=== PATIENT | male | born 1960 | race Caucasian/White ===

== ENCOUNTER 2023-10-23 07:47 | Outpatient (CLI) | payer OTHER, SELFPAY ==
--- NOTE | ~2023-10-23 | US_ITS ---
Procedure: Duplex Doppler examination of the bilateral carotids. Indication: Carotid bruit Technique: Real time, color-flow and pulse wave Doppler examination of the bilateral carotids was performed. Findings: Adams scale ultrasonography of the right neck demonstrated no significant plaque. There was demonstrat ion of normal color-flow and Doppler waveforms within the right common, internal and external carotid arteries. The peak systolic velocities in the right common, internal and external carotid arteries w ere demonstrated to be 89 cm/sec, 77 cm/sec and 132 cm/sec respectively. The right ICA/CCA ratio was 0.9.The proximal right internal carotid artery demonstrates 0% stenosis relative to the normal distal artery lumen diameter. Adams scale sonography of the left neck demonstrated no significant plaque. There was demonstration of normal color-flow and wave forms within the left common, internal and external carotid arteries. The peak systolic velocities in the left common, internal and external carotid arteries were demonstrate d to be 95cm/sec, 79 cm/sec and 126 cm/sec respectively. The left ICA/CCA ratio was 0.8. The proximal left internal carotid artery demonstrates 0% stenosis relative to the normal distal artery lumen kavin meter. There was antegrade flow demonstrated in the bilateral vertebral arteries. Impression: No hemodynamically significant stenosis of the bilateral internal carotid arteries. Antegrade flow in the bilateral vertebral arteries. Note: The methodology used is an indirect measurement validated against a direct method (such as the NASCET criteria) that compares diameters at the stenosis to the distal ICA. Reviewed, dictated and finalized at [facility]. REMENT ASSISTANT Impression: No hemodynamically significant stenosis of the bilateral internal carotid arter ies. Antegrade flow in the bilateral vertebral arteries. Note: The methodology used is an indirect measurement validated against a direct meth od (such as the NASCET criteria) that compares diameters at the stenosis to the distal ICA.
--- NOTE | ~2023-10-23 | CT_ITS ---
CT Scan of the Chest without Contrast: Clinical Indication: Lung cancer screening, personal history of nicotine dependence Technique: Contiguous sections were acquired throughout the chest without intravenous contrast. Dose reduction technique was used on this scan by utilizing automated exposure control and iterative recon struction technique. The dose-length product (DLP) was 169.14 mGy-cm. Findings: There is no evidence of any significant mediastinal, hilar or axillary lymphadenopathy. Calcified med iastinal and right hilar lymph nodes are present. There is no evidence of pleural or pericardial effusion. Calcified right lower lobe granuloma noted. No other pulmonary nodule seen. Images through the upper abdomen reveal no abnormalities. Impression: Lung RADS 2: Benign appearance. 12 month follow-up screening CT advised. Reviewed, dictated and finalized at [facility]. AL HEALTH AIDE Impression: Lung RADS 2: Benign appearance. 12 month follow-up screening CT advised.
--- NOTE | ~2023-10-23 | US_ITS ---
EXAMINATION: US aorta DATE: 10/23/2023 08:29 INDICATION: Abdominal aortic aneurysm screening, current smoker TECHNIQUE: Grayscale, color Doppler, and pulsed Doppler images of the aorta and common iliac arteries were obtained. COMPARISON: None. FINDINGS: Maximum vascular dimensions are as follows: Proximal aorta: 2.7 cm Mid aorta: 1.9 cm Distal aorta: 1.7 cm Right common iliac artery: 1.0 cm Left common iliac artery: 1.1 cm There is no evidence of abdominal aortic aneurysm. IMPRESSION: 1. No sonographic evidence of abdominal aortic aneurysm. Reviewed, dictated and finalized at location L. MATIC STEEL TIE ADJUSTER
== END 2023-10-23 07:48 | disposition home or self-care (01) ==
LOC: CHSIMG 07:52
PROVIDERS: PCP Internal Medicine; Visit Provider Internal Medicine
DX: Z12.2 Encounter for screening for malignant neoplasm of respiratory organs (principal); R09.89 Other specified symptoms and signs involving the circulatory and respiratory systems; Z87.891 Personal history of nicotine dependence
CPT/HCPCS: 71271; 76775; 93880

== ENCOUNTER 2023-12-12 08:34 | Outpatient (CLI) | payer OTHER, SELFPAY ==
[2023-12-16 11:49] LABS: Testosterone Free 78.5 pg/mL (35.0-155.0); Testosterone Total 497 ng/dL (250-1100)
== END 2023-12-12 08:35 | disposition home or self-care (01) ==
LOC: CHSLAB 08:36
PROVIDERS: PCP Internal Medicine; Visit Provider Internal Medicine
DX: N52.9 Male erectile dysfunction, unspecified (principal)
CPT/HCPCS: 36415; 84402; 84403

== ENCOUNTER 2024-10-27 11:57 | Outpatient (CLI) | payer OTHER, SELFPAY ==
[2024-10-27 12:12] LABS: Basophils Absolute Auto 0.07 K/mm3 (0.00-0.10); Basophils Percent Auto 1.1 % (0.0-1.0); Eosinophils Percent Auto 1.6 % (1.0-6.0); Hematocrit 40.7 % (40.0-54.0); Hemoglobin 14.2 g/dL (14.0-18.0); Immature Granulocyte Absolute 0.03 K/mm3 (0.00-0.00); Immature Granulocyte Percent A 0.5 % (0.0-0.0); Lymphocytes Absolute Auto 1.83 K/mm3 (1.10-4.50); Lymphocytes Percent Auto 29.8 % (18.0-42.0); Mean Corpuscular HGB Conc 34.9 g/dL (32-36); Mean Corpuscular Hemoglobin 30.8 pg (27.0-31.0); Mean Corpuscular Volume 88.3 fL (78.0-102.0); Mean Platelet Volume 8.9 fl (8.7-11.0); Monocytes Absolute Auto 0.53 K/mm3 (0.10-0.90); Monocytes Percent Auto 8.6 % (2.0-11.0); Neutrophils Absolute Auto 3.59 K/mm3 (1.70-7.20); Neutrophils Percent Auto 58.4 % (50.0-70.0); Platelet Count Result 228 K/mm3 (150-420); Red Blood Count 4.61 M/mm3 (4.70-6.10); Red Cell Distribution Width 12.4 % (11.6-14.4); White Blood Count 6.2 K/mm3 (4.8-10.8)
[2024-10-27 12:13] LABS: Add Urine Microscopic? NO; Appearance Urine Clear (Clear); Bilirubin Urine Negative (Negative); Blood Urine Negative (Negative); Color Urine Light Yellow (Yellow); Glucose Urine UA Negative (Negative); Ketones Urine Negative (Negative); Leukocyte Esterase Ur Negative LEU/UL (Negative); Nitrate Urine Negative (Negative); Protein Urine Negative (Negative); Specific Grav Ur >= 1.030 (1.010-1.020); Urobilinogen Urine 0.2 mg/dL (0.2-1.0)
[2024-10-27 16:45] LABS: Alanine Aminotransferase 37 U/L (16-63); Albumin Level 3.7 g/dL (3.4-5.0); Alkaline Phosphatase 80 U/L (46-116); Anion Gap 12 mmol/L (4-12); Aspartate Amino Transferase 24 U/L (15-37); Bilirubin,Total 0.7 mg/dL (0.00-1.00); Blood Urea Nitrogen 20 mg/dL (7-18); Carbon Dioxide 25 mmol/L (21-32); Chloride 105 mmol/L (98-108); Cholesterol 236 mg/dL (0-200); Estimated Glomerular Filt Rate > 60; Glucose 92 mg/dL (70-99); HDL Direct 64 mg/dL (40-60); LDL Cholesterol Calculated 155 mg/dL (<130); Osmolality Calculated 296 mOsm/kg (285-295); Potassium 4.1 mmol/L (3.5-5.1); Sodium 142 mmol/L (136-145); Total Protein 6.6 g/dL (6.4-8.2); Triglycerides 85 mg/dL (0-150)
[2024-10-27 17:11] LABS: Hemoglobin A1C 5.4 % (<5.7)
== END 2024-10-27 11:58 | disposition home or self-care (01) ==
LOC: CHSLAB 11:58
PROVIDERS: PCP Internal Medicine; Visit Provider Internal Medicine
DX: N39.0 Urinary tract infection, site not specified (principal); R73.01 Impaired fasting glucose; E78.00 Pure hypercholesterolemia, unspecified
CPT/HCPCS: 36415; 80053; 80061; 81003; 83036; 85025

== ENCOUNTER 2024-12-03 13:11 | Outpatient (CLI) | payer OTHER, SELFPAY ==
--- NOTE | ~2024-12-03 | CT_ITS ---
EXAMINATION:CT lung screening DATE: 12/03/2024 13:41 INDICATION: Personal history of nicotine dependence. Smoker who quit 1 year ago with 45 pack year his tory. TECHNIQUE: Computed tomography (CT) of the chest was performed without intravenous contrast. Automate d exposure control and iterative reconstruction technique were employed. The dose-length product (DLP ) was 272.80 mGy-cm. COMPARISON: Chest CT 10/23/2023 FINDINGS: A calcified right lung nodule and calcified right hilar lymph nodes are consistent with old granulomatous disease. There is a 2 mm nodule in right upper lobe. No pleural effusion. The heart si ze is normal. No pericardial effusion. There are coronary artery calcifications. No pericardial effus ion. Calcifications in the spleen are consistent with old granulomatous disease. There is mild thorac ic spondylosis. IMPRESSION: 1. Lung-RADS category 2: Benign appearance or behavior. Continue annual screening with noncontrast lo w-dose chest CT in 12 months. Reviewed, dictated and finalized at location B. BRIEFER IMPRESSION: 1. Lung-RADS category 2: Benign appearance or behavior. Continue annual screeni ng with noncontrast low-dose chest CT in 12 months.
--- OUTSIDE RECORDS SUMMARY | 2024-12-03 13:19 | XMS_ITS | Clinical Summary ---
Author Organization [facility] Address [address] [place] [id number] Care Team Providers Care Studio Sales Associate Name Role Phone Michele Lewis MD Primary Care Provider [phone] Allergies No known active allergies Medications buPROPion SR (ZYBAN) 150 mg 12 hr tabletIndication s:Smoker Take 1 tablet (150 mg total) by mouth 2 (two) times a day 60 tablet 1 05/23/2020 Active sertraline (ZOLOFT) 50 mg tabletIndication s:Anxiety Take 1 tablet (50 mg total) by mouth daily 90 tablet 4 03/22/2022 Active Active Problems Problem Noted Date Diagnosed Date Paresthesias 06/03/2018 Anxiety disorder 09/12/2014 Hyperglycemia 09/03/2012 Hyperlipidemia 09/03/2012 Benign colonic polyp 08/18/2012 Immunizations Name Administration Dates Next Due Influenza, Quadrivalent, Spl it, Preservative Free, Intramuscular 09/12/2015 Influenza, Trivalent, Preservative Free, Intramu scular 09/12/2014,09/10/2013 Pneumococcal Polysaccharide PPV23 12/26/2017 Tdap 09/12/2014 Medical History Medical History Date Comments Cervicalgia Neck pain - (Add ed by TW Conv) Full incontinence of feces Bowel incontinence - (Added by TW Conv) Encounter for antibody respo nse examination Immunity status testing - (A dded by TW Conv) Family History Medical History Relation Name Comments Hyperlipidemia Father Family histor y of hyperlipidemia - (Added by TW Conv) Peripheral vascular disease Sister Family history of peripheral vascular disease - (Added by TW Conv) Rectal cancer Sister Rectal Cancer - (Added by TW Conv) Relation Name Status Comments Father Sister Social History Tobacco Use Types Packs/Day Years Used Date Smoking Tobacco: Former Sex and Gender Information Value Date Recorded Sex Assigned at Not on file Legal 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 Gender Identity Not on file Sexual Orientation Not on file Obstetrics History Last Filed Vital Signs Vital Sign Reading Time Taken Comments Blood Pressure 116/60 03/22/2022 9:19 AM CDT Pulse 82 03/22/2022 9:19 AM CDT Temperature 36.6 ??C (97.9 ??F) 03/22/2022 9:19 AM C DT Respiratory Rate - - Oxygen Saturation 95% 03/22/2022 9:19 AM CDT Inhaled Oxygen Concentration - - Weight 93 kg (205 lb) 03/22/2022 9:19 AM CDT Height 184.2 cm (6' 0.5 ) 05/23/2020 10:34 AM CD T Body Mass Index 27.42 05/23/2020 10:34 AM CDT Plan of Treatment Health Maintenance Due Date Last Done Comments Colon Cancer Screening-Colonoscopy 1960 Depression Screening 1960 Hepatitis C Screening 1960 Hepatitis B Screening 1978 Zoster Vaccine (1 of 2) 2010 Prostate Cancer Screening-PSA 05/26/2022 05/26/2020 Regular Well Visit/Exam 18-64 03/22/2023, 05/23/2020 Influenza Vaccine (#1) 2024 5, 09/12/2014, 09/10/2013 DTaP/Tdap/Td Vaccine (2 - Td or Tdap) 09/12/2024 09/12/2014 Pneumococcal vaccine <65 Aged Out 12/26/2017 No longer eligible based on patient's age to complete this topic Procedures Procedure Name Priority Date/Time Associated Diagnosis Comments PSA SCREEN Routine 05/26/2020 7:58 AM CDT Prostate cancer screening from Last 3 Months or Most Recently Relevant to Health Maintenance Results * PSA screen (05/26/2020 7:58 AM CDT) PSA 1.5 < OR = 4.0 ng/mL [employer] Comment: The total PSA value from this assay system is standardized against the WHO standard. The test result will be approximately 20% lower when compared to the equimolar-standardized total PSA ([place]ik [place]). Comparison of serial PSA results should be interpreted with this fact in mind. This test was performed using the Siemens chemiluminescent method. Values obtained from different assay methods cannot be used interchangeably. PSA levels, regardless of value, should not be interpreted as absolute evidence of the presence or absence of disease. Blood specimen (specimen) 05/26/2020 7:58 AM CDT 05/26/2020 7:59 AM CDT Narrative [facility] - 05/27/2020 7:52 AM CDT FASTING:YES FASTING: YES Michele Lewis MD LAB BLOOD ORDERABLES Final R esult [employer] [address] [place] [address] from Last 3 Months or Most Recently Relevant to Health Maintenance Insurance [facility] Care Teams Studio Sales Associate Relationship Specialty Start Date End Date Michele Lewis MD [address] [place] [address] [place] [address] PCP - General Cardiovascular Disease 08/31/20
--- OUTSIDE RECORDS SUMMARY | 2024-12-03 13:19 | XMS_ITS | Referral Summary ---
Author Organization 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 Gender Identity Not on file Sexual Orientation Not on file Last Filed Vital Signs Vital Sign Reading Time Taken Comments Blood Pressure 116/60 03/22/2022 9:19 AM CDT Pulse 82 03/22/2022 9:19 AM CDT Temperature 36.6 ??C (97.9 ??F) 03/22/2022 9:19 AM CD T Respiratory Rate - - Oxygen Saturation 95% 03/22/2022 9:19 AM CDT Inhaled Oxygen Concentration - - Weight 93 kg (205 lb) 03/22/2022 9:19 AM CDT Height 184.2 cm (6' 0.5 ) 05/23/2020 10:34 AM CD T Body Mass Index 27.42 05/23/2020 10:34 AM CDT Plan of Treatment Not on file Procedures Procedure Name Priority Date/Time Associated Diagnosis Comments PSA SCREEN Routine 05/26/2020 7:58 AM CDT Prostate cancer screening from Last 3 Months or Most Recently Relevant to Health Maintenance Results * PSA screen (05/26/2020 7:58 AM CDT) PSA 1.5 < OR = 4.0 ng/mL [employer] Comment: The total PSA value from this assay system is standardized against the WHO standard. The test result will be approximately 20% lower when compared to the equimolar-standardized total PSA (Vik [place]). Comparison of serial PSA results should be [...] 05/27/2020 7:52 AM CDT FASTING:YES FASTING: YES us Michele Lewis MD LAB BLOOD ORDERABLES Final R esult [facility] [employer] [facility] [id number] [place] [phone] from Last 3 Months or Most Recently Relevant to Health Maintenance Insurance [facility] Care Teams Floor Plan Adjuster Relationship Specialty Start Date End Date Michele Lewis MD [facility] [address] Rocky WOLFE [address] [place] [id number] PCP - General Cardiovascular Disease 08/31/20
== END 2024-12-03 13:12 | disposition home or self-care (01) ==
LOC: CHSIMG 13:13
PROVIDERS: PCP Internal Medicine; Visit Provider Internal Medicine
DX: Z12.2 Encounter for screening for malignant neoplasm of respiratory organs (principal); Z87.891 Personal history of nicotine dependence
CPT/HCPCS: 71271

== ENCOUNTER 2025-09-28 07:50 | Outpatient (CLI) | payer OTHER, SELFPAY ==
--- NOTE | ~2025-09-28 | CT_ITS ---
EXAMINATION: CT abdomen pelvis w con DATE: 09/28/2025 08:39 INDICATION: Right upper quadrant abdominal pain TECHNIQUE: Computed tomography (CT) of the abdomen and pelvis was performed with 100 mL Omnipaque-350 intravenous contrast. Automated exposure control and iterative reconstruction technique were employed. The dose-length product was 685.82 mGy-cm. COMPARISON: None FINDINGS: Calcified right lower lobe nodule consistent with old granulomatous disease. Heart size is normal. No pericardial or pleural effusion. Liver, gallbladder, pancreas, bilateral adrenal glands and kidneys are normal. Multiple splenic calcifications consistent with old granulomatous disease. Bowels including the appendix are normal. Bladder is normal. No free intraperitoneal gas or fluid. No pathologically enlarged abdominal or pelvic lymphadenopathy. Small fat- containing right inguinal hernia. Mild to moderate bilateral hip osteoarthritis with subarticular cystlike changes along the anterosuperior aspect of the acetabula. 10 degrees lumbar levocurvature with mild spondylosis. IMPRESSION: 1. No acute intra-abdominal/pelvic process. Reviewed, dictated and finalized at location A. OMER FACILITIES SUPERVISOR
[2025-09-28 08:14] LABS: Estimated Glomerular Filt Rate > 60
== END 2025-09-28 07:51 | disposition home or self-care (01) ==
LOC: CHSIMG 07:51
PROVIDERS: PCP Internal Medicine; Visit Provider Internal Medicine
DX: R10.31 Right lower quadrant pain (principal)
CPT/HCPCS: 74177; Q9967